=== PATIENT | male | born 1990 ===

== ENCOUNTER → 2024-10-04 | Emergency (ER) | payer OTHER ==
[~2024-10-04] VITALS: Ht 177.8 cm; Wt 68.2 kg
[2024-10-04 15:37] VITALS: BP 130/76; PULSE 102; RESP 18; TEMP 98; O2SAT 99
== END | disposition left against medical advice (07) ==
LOC: EMS 15:28
DX: M79.605 Pain in left leg (principal); Z53.21 Procedure and treatment not carried out due to patient leaving prior to being seen by health care provider